=== PATIENT | male | born 1960 | race Caucasian/White ===

== ENCOUNTER → 2021-08-08 09:32 | Outpatient (BNVA) | payer OTHER, SELFPAY | PROVIDERS: PCP Internal Medicine; Visit Provider Psychiatry & Neurology Neurology | DX: R56.9 Unspecified convulsions (principal); F10.20 Alcohol dependence, uncomplicated; F32.A Depression, unspecified; Z79.899 Other long term (current) drug therapy | CPT/HCPCS: 99212 ==

== ENCOUNTER → 2021-10-31 09:12 | Outpatient (BNVA) | payer OTHER, SELFPAY | PROVIDERS: PCP Internal Medicine; Visit Provider Psychiatry & Neurology Neurology | DX: S06.0X9A Concussion with loss of consciousness of unspecified duration, initial encounter (principal); R56.9 Unspecified convulsions; F10.20 Alcohol dependence, uncomplicated; F32.A Depression, unspecified | CPT/HCPCS: 99212 ==

== ENCOUNTER 2021-12-09 16:20 | Outpatient (REF) | payer OTHER, SELFPAY ==
--- NOTE | ~2021-12-09 | CT_ITS ---
EXAMINATION: CT HEAD WITHOUT CONTRAST CLINICAL INFORMATION: Concussion. Loss of consciousness. COMPARISON: No relevant prior imaging. TECHNIQUE: Contiguous axial imaging was performed from the skull base to vertex without intravenous administration of contrast. This CT examination was performed using dose optimization techniques as appropriate, variously including the following: *Automated exposure control *Adjustment of mA and/or kV according to patient size (this includes techniques or standardized protocols for targeted exams where dose is matched to indication/reason for exam; i.e. extremities or head) *Use of iterative reconstruction technique DLP: 684 mGy-cm FINDINGS: There is gliosis and encephalomalacia involving the right posterior temporal lobe and the left middle frontal gyrus. Curran-white matter differentiation is otherwise preserved. No acute hemorrhage or abnormal extra-axial collection. No intracranial mass effect or hydrocephalus. The calvarium and skull base are intact. Mastoid air cells and middle ear cavities are well aerated. Partial opacification of the left ethmoid air cells and sphenoid sinus. Globes and orbits are symmetric. 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 Otherwise no acute intracranial finding.
== END 2021-12-09 16:21 | disposition home or self-care (01) ==
LOC: HO.CT 16:20
PROVIDERS: PCP Internal Medicine; Visit Provider Psychiatry & Neurology Neurology
DX: S06.0X9A Concussion with loss of consciousness of unspecified duration, initial encounter (principal)
CPT/HCPCS: 70450

== ENCOUNTER → 2022-01-05 10:32 | Outpatient (BNVA) | payer OTHER, SELFPAY | PROVIDERS: PCP Internal Medicine; Visit Provider Nurse Practitioner Family | DX: S06.0X9D Concussion with loss of consciousness of unspecified duration, subsequent encounter (principal); R56.9 Unspecified convulsions | CPT/HCPCS: 99212 ==

== ENCOUNTER 2022-02-03 07:23 | Outpatient (REF) | payer OTHER, SELFPAY ==
--- NOTE | 2022-02-03 07:26 | EEG_ITS ---
The waking background activity consists of low voltage fast frequencies seen diffusely, intermixed with low voltage 9 to 10 hertz posterior alpha frequency. Photic stimulation is without activation. Hyperventilation produces no change. No sleep stages are identified. No focal, lateralizing, or paroxysmal discharges seen. IMPRESSION: This waking EEG is within normal limits. MD ANUPAMA Randle/[place] / [id number]
== END 2022-02-03 07:24 | disposition home or self-care (01) ==
LOC: HO.NEURO 07:23
PROVIDERS: Visit Provider Nurse Practitioner Family
DX: F10.20 Alcohol dependence, uncomplicated (principal); R56.9 Unspecified convulsions; S09.90XA Unspecified injury of head, initial encounter
CPT/HCPCS: 95816

== ENCOUNTER → 2022-02-09 11:16 | Outpatient (BNVA) | payer OTHER, SELFPAY | PROVIDERS: PCP Internal Medicine; Visit Provider Nurse Practitioner Family | DX: S06.0X9D Concussion with loss of consciousness of unspecified duration, subsequent encounter (principal); R56.9 Unspecified convulsions; F10.20 Alcohol dependence, uncomplicated; F32.A Depression, unspecified | CPT/HCPCS: 99212 ==

== ENCOUNTER → 2022-08-04 09:59 | Outpatient (BNVA) | payer OTHER, SELFPAY | PROVIDERS: PCP Internal Medicine; Visit Provider Nurse Practitioner Family | DX: R56.9 Unspecified convulsions (principal); Z86.73 Personal history of transient ischemic attack (TIA), and cerebral infarction without residual deficits | CPT/HCPCS: 99212 ==

== ENCOUNTER 2022-11-03 13:29 | Outpatient (AMB) | payer OTHER, SELFPAY ==
--- NOTE | 2022-11-03 13:36 | A.OFFVIS_ITS ---
Intake Vital Signs 11/03/22 13:37 Height 5 ft 5 in Weight 186 lb 8 oz BMI 31.0 BP 104/78 Blood Pressure Location Lt brachial Position Sitting Pulse 86 Pulse Source Pulse Oximeter Pulse Oximetry (%) 97 Oxygen Delivery Method Room Air Intake Visit Reasons: Follow up -Stroke-Confirmed Intake Note: Pt presents as a f/u stroke Equal Opportunity Director Required: No Allergies No Known Allergies Allergy (Verified 11/03/22 13:40) HPI HPI Comments History of Present Illness Details 62 y/o male presents for follow up of se yancey. He reports he had two seizure, in mid September, and early October. The first seizure was happened when he walking to the bathroom, but felt he is going down. He hold the towel rack and shower curtain and lost consciousness. The second seizure, he was sitting on the couch tired to get something to drink but he blacked out and lost consciousness. Pt can't remember how long he lost consciousness. Denies episodes of incontinence. Pt is on gabapentin 300 mg qHS for seizure, is compliant the medication. Denies alcohol intake. He does not drive, [facility] Medical History Psoriasis Sleep problem caused by drug GERD (gastroesophageal reflux disease) Hyperlipidemia HTN (hypertension) Diabetes Depression Alcoholic cirrhosis Family History Father Heart disease Mother PSP (progressive supranuclear palsy) Social History (Updated 11/03/22 @ 13:48 by Joyce Proctor CMA) Alcohol intake: former Patient Tobacco Use Status: Former Tobacco user Review of Systems Const All systems reviewed & are unremarkable except as noted in HPI and below ENT Reports Normal hearing present Neuro Reports Normal hearing present Physical Exam Vital Signs: Last Vital Signs Pulse 86 11/03/22 13:37 BP 104/78 11/03/22 13:37 Pulse Ox 97 11/03/22 13:37 Oxygen Delivery Method Room Air 11/03/22 13:37 BMI result Body Mass Index 31.0 Const Other: right mouth mildly droop. 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 Stuttering. General: patient oriented x3 and moves all extremities Cranial nerves: Yes Bilaterally intact EOM present, Yes Midline tongue present, Yes Symmetric palate elevation present, Yes Normal hearing present, Yes Ability to bilaterally rotate head present and Yes Ability to bilaterally elevate shoulders present Cognition (Neuro): normal cognition Gait exam (Neuro): Assisted gait required and Assistive device used Psych Affect: normal affect Attitude: cooperative Assessment & Plan Assessment & Plan (1) Seizures: Code(s): R56.9 - Unspecified convulsions Plan Advised patient to undergo EEG to assess seizure activity. Increase gabapentin to 400 mg qHS. Stressed compliance medication. Do not drive. Orders: Orders EEG electroencephalogram 11/03/22 R56.9 - Unspecified convulsions, Z86.73 - Personal history of transient ischemic attack (TIA), and cerebral infarction without residual deficits Medications: New gabapentin 400 mg PO BEDTIME 30 days 30 caps 6RF Discontinued gabapentin Discontinued Reason: Doctor's Order 300 mg PO BEDTIME 30 caps 6RF Coding Level of Care Code Est Pt Level 3 (76501) Diagnoses Seizures R56.9
[2022-11-03 13:37] VITALS: BP 104/78; PULSE 86; O2SAT 97; BMI 31.0
== END 2022-11-03 14:10 | disposition home or self-care (01) ==
PROVIDERS: PCP Internal Medicine; Visit Provider Nurse Practitioner Family
DX: R56.9 Unspecified convulsions (principal)
CPT/HCPCS: 99213

== ENCOUNTER → 2022-11-03 13:29 | Outpatient (BNVA) | payer OTHER, SELFPAY | PROVIDERS: PCP Internal Medicine; Visit Provider Nurse Practitioner Family | DX: R56.9 Unspecified convulsions (principal); Z86.73 Personal history of transient ischemic attack (TIA), and cerebral infarction without residual deficits; Z79.899 Other long term (current) drug therapy | CPT/HCPCS: 99212 ==

== ENCOUNTER 2022-12-06 13:00 | Outpatient (REF) | payer OTHER, SELFPAY ==
--- NOTE | 2022-12-06 13:03 | EEG_ITS ---
This is a 16-channel EEG with an EKG lead. The patient is reported awake during the tracing. Background EEG rhythm is low amplitude fast with no obvious asymmetry or paroxysmal tendency. Photic stimulation is unremarkable. Hyperventilation did not reveal any significant abnormality. No sharp wave spikes or paroxysmal tendency noted. Cardiac lead did not reveal any significant abnormality. IMPRESSION: Unremarkable electroencephalogram. MD JARETH Camejo/[place] / [id number]
== END 2022-12-06 13:01 | disposition home or self-care (01) ==
LOC: HO.NEURO 13:00
PROVIDERS: PCP Internal Medicine; Visit Provider Nurse Practitioner Family
DX: R56.9 Unspecified convulsions (principal); Z86.73 Personal history of transient ischemic attack (TIA), and cerebral infarction without residual deficits
CPT/HCPCS: 95816

== ENCOUNTER 2023-09-12 13:57 | Outpatient (AMB) | payer OTHER, SELFPAY ==
--- NOTE | 2023-09-12 14:02 | A.OFFVIS_ITS ---
Vital Signs 09/12/23 14:03 Height 5 ft 5 in Weight 179 lb BMI 29.8 BP 122/68 Blood Pressure Location Rt brachial Position Sitting Respiration 16 Pulse 68 Pulse Source Pulse Oximeter Pulse Oximetry (%) 97 Oxygen Delivery Method Room Air Intake Visit Reasons: Follow up - Confirmed Intake Note: Pt presents to the office for a 10 month follow up for seizures. Assistant Child Care Teacher Required: No Allergies No Known Allergies Allergy (Verified 09/12/23 14:03) Medication List - Last Reconciled 09/12/23 by Mahnaz Fry MD acamprosate 666 mg PO TID amlodipine 10 mg PO DAILY apremilast (Otezla) 30 mg PO DAILY ascorbic acid (vitamin C) 1 g PO DAILY aspirin 81 mg PO DAILY atorvastatin 20 mg PO DAILY citalopram 10 mg PO DAILY docusate sodium 100 mg PO BID PRN fluoxetine 40 mg PO DAILY gabapentin 400 mg PO BEDTIME 30 days insulin aspart U-100 (Novolog PenFill U-100 Insulin aspart) 1 sliding scale dose subcut USEASDIRECTD insulin glargine (Lantus U-100 Insulin) 18 units subcut QPM losartan 30 mg PO DAILY multivitamin (Daily Multi-Vitamin tablet) 1 tab PO DAILY omeprazole 40 mg PO DAILY prednisone 20 mg PO DAILY rosuvastatin 10 mg PO BEDTIME trazodone 50 mg PO BEDTIME HPI Comments Details: 63 y/o male presents for follow up of seizure. He reports being hospitalized for 2 strokes- he also had another ER visit but was discharged . The first admission was in Nov 2022 -had difficulty walking and speech difficulty. his balance is off and he falls inspite of using a cane. The second admission was few months ago - he fell and was admitted at [facility] again. Spray Machine Operator brought him to ER- June 2023 - when he had a fall. He is not sure if he has seizures but says he has multiple falls and blanks out Pt can't remember how long he lost consciousness. Denies episodes of incontinence. Pt is on gabapentin 300 mg qHS for seizure, is compliant the medication. Denies alcohol intake. He does not drive, [facility] Medical History (Updated 09/12/23 @ 14:31 by Mahnaz Fry MD) Gait abnormality Psoriasis Sleep problem caused by drug GERD (gastroesophageal reflux disease) Hyperlipidemia HTN (hypertension) Diabetes Depression Alcoholic cirrhosis Family History Father Heart disease Mother PSP (progressive supranuclear palsy) Social History Alcohol intake: former Patient Tobacco Use Status: Former Tobacco user Review of Systems ENT Reports Normal hearing present Neuro Reports Normal hearing present Physical Exam Vital Signs: Last Vital Signs Pulse 68 09/12/23 14:03 Resp 16 09/12/23 14:03 BP 122/68 09/12/23 14:03 Pulse Ox 97 09/12/23 14:03 Oxygen Delivery Method Room Air 09/12/23 14:03 BMI result Body Mass Index 29.8 Const Other: frequent stuttering General: cooperative Orientation/consciousness: patient oriented x3 Neck Neck: Yes full ROM and Yes supple Resp Effort & Inspection: normal respiratory effort and able to speak in complete sentences Neuro Other: 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 Stuttering. General: patient oriented x3 and moves all extremities Cranial nerves: Yes Bilaterally intact EOM present, Yes Midline tongue present, Yes Symmetric palate elevation present, Yes Normal hearing present, Yes Ability to bilaterally rotate head present and Yes Ability to bilaterally elevate shoulders present Cognition (Neuro): normal cognition Gait exam (Neuro): Assisted gait required and Assistive device used Psych Affect: normal affect Attitude: cooperative Assessment & Plan Assessment & Plan (1) Seizures: Code(s): R56.9 - Unspecified convulsions Category: Medical (2) Gait abnormality: Code(s): R26.9 - Unspecified abnormalities of gait and mobility Category: Medical (3) Recent cerebrovascular accident (CVA): Code(s): Z86.73 - Personal history of transient ischemic attack (TIA), and cerebral infa rction without residual deficits Category: Medical Plan EEG was normal Continue gabapentin to 400 mg qHS. Stressed compliance medication. Do not drive. Notes from [facility] for review It is unclear if his episodes are seizures. Diabetes management - f/u PCP Coding Level of Care Code Est Pt Level 4 (73024) Diagnoses Seizures R56.9 Gait abnormality R26.9 Recent cerebrovascular accident (CVA) Z86.73
[2023-09-12 14:03] VITALS: BP 122/68; PULSE 68; RESP 16; O2SAT 97; BMI 29.8
== END 2023-09-12 14:37 | disposition home or self-care (01) ==
PROVIDERS: PCP Internal Medicine; Visit Provider Psychiatry & Neurology Neurology
DX: R56.9 Unspecified convulsions (principal); R26.9 Unspecified abnormalities of gait and mobility; Z86.73 Personal history of transient ischemic attack (TIA), and cerebral infarction without residual deficits
CPT/HCPCS: 99214

== ENCOUNTER → 2023-09-12 13:57 | Outpatient (BNVA) | payer OTHER, SELFPAY | PROVIDERS: PCP Internal Medicine; Visit Provider Psychiatry & Neurology Neurology | DX: R56.9 Unspecified convulsions (principal); R26.9 Unspecified abnormalities of gait and mobility; Z86.73 Personal history of transient ischemic attack (TIA), and cerebral infarction without residual deficits | CPT/HCPCS: 99212 ==